=== PATIENT | male | born 1995 | race Caucasian/White ===

== ENCOUNTER 2017-09-14 19:28 | Emergency (ER) | payer OTHER ==
[2017-09-14 20:09] VITALS: BP 138/93
== END 2017-09-15 01:38 | disposition left against medical advice (07) ==
LOC: ED 19:28
DX: Z53.21 Procedure and treatment not carried out due to patient leaving prior to being seen by health care provider (principal)

== ENCOUNTER 2018-05-22 22:40 | Emergency (ER) | payer OTHER ==
[~2018-05-22] VITALS: Ht 172.7 cm; Wt 57.6 kg
[2018-05-22 22:55] VITALS: Ht 172.7 cm; Wt 57.6 kg
[2018-05-23 01:43] VITALS: BP 123/91
== END 2018-05-23 01:43 | disposition home or self-care (01) ==
LOC: ED 22:40
DX: L30.9 Dermatitis, unspecified (principal)